=== PATIENT | male | born 1990 | race Caucasian/White ===

== ENCOUNTER 2016-08-11 19:32 | Emergency (ER) | payer SELFPAY ==
[~2016-08-11] VITALS: Ht 185.4 cm; Wt 81.8 kg
[~2016-08-11 19:32] MED LIST: AMOXICILLIN 50500 MG PO; FLAGYL500 MG PO; FLEXERIL 1010 MG/TAB PO; LITHOBID 3300 MG/TAB PO; NAPROSYN500 MG PO; NO HOME MEDICATIONS; NORCO 325 MG-51 TAB PO; ROBAXIN 50500 MG/TAB PO; SEROQUEL XR50 MG PO
[2016-08-11 19:33] VITALS: TEMP 98.9
[2016-08-11] MEDS ORDERED: ULTRAM 50MG TAB50 MG PO (19:52)
[2016-08-11 20:48] VITALS: BP 120/72; PULSE 98
== END 2016-08-11 20:49 | disposition home or self-care (01) ==
LOC: COL.ER 19:32
DX: S46.912A Strain of unspecified muscle, fascia and tendon at shoulder and upper arm level, left arm, initial encounter (principal); F17.210 Nicotine dependence, cigarettes, uncomplicated; X50.3XXA Overexertion from repetitive movements, initial encounter; Y92.008 Other place in unspecified non-institutional (private) residence as the place of occurrence of the external cause; G89.29 Other chronic pain
CPT/HCPCS: J1885

== ENCOUNTER 2016-12-10 19:46 | Emergency (ER) | payer SELFPAY ==
[~2016-12-10] VITALS: Ht 193 cm; Wt 75.0 kg
[~2016-12-10 19:46] MED LIST changes: +ULTRAM 50MG TAB50 MG PO
[2016-12-10 19:49] VITALS: BP 130/80; PULSE 88; TEMP 98.5
== END 2016-12-10 20:40 | disposition home or self-care (01) ==
LOC: COL.ER 19:46
DX: S61.212A Laceration without foreign body of right middle finger without damage to nail, initial encounter (principal); F31.9 Bipolar disorder, unspecified; F20.9 Schizophrenia, unspecified; F17.210 Nicotine dependence, cigarettes, uncomplicated; W26.8XXA Contact with other sharp object(s), not elsewhere classified, initial encounter; Y92.009 Unspecified place in unspecified non-institutional (private) residence as the place of occurrence of the external cause

== ENCOUNTER 2017-03-02 14:09 | Emergency (ER) | payer SELFPAY ==
[~2017-03-02] VITALS: Ht 185.4 cm; Wt 76.4 kg
[2017-03-02 14:14] VITALS: BP 115/64; TEMP 98.1
[2017-03-02] MEDS ORDERED: FLEXERIL 1010 MG/TAB PO (15:11)
[2017-03-02 15:48] VITALS: PULSE 68
== END 2017-03-02 15:49 | disposition home or self-care (01) ==
LOC: COL.ER 14:09
DX: S33.9XXA Sprain of unspecified parts of lumbar spine and pelvis, initial encounter (principal); F17.210 Nicotine dependence, cigarettes, uncomplicated; X50.0XXA Overexertion from strenuous movement or load, initial encounter
CPT/HCPCS: J1885; J2360

== ENCOUNTER 2017-03-28 17:30 | Emergency (ER) | payer SELFPAY ==
[~2017-03-28] VITALS: Ht 185.4 cm; Wt 76.4 kg
[2017-03-28 17:35] VITALS: BP 144/82; TEMP 98.6
[2017-03-28] MEDS ORDERED: FLEXERIL 1010 MG/TAB PO (19:06)
[2017-03-28 19:14] VITALS: PULSE 85
== END 2017-03-28 19:14 | disposition home or self-care (01) ==
LOC: COL.ER 17:30
DX: S33.9XXA Sprain of unspecified parts of lumbar spine and pelvis, initial encounter (principal); Z87.891 Personal history of nicotine dependence; X50.0XXA Overexertion from strenuous movement or load, initial encounter
CPT/HCPCS: J1885; J2360

== ENCOUNTER 2018-06-07 12:55 | Emergency (ER) | payer SELFPAY ==
[~2018-06-07] VITALS: Ht 185.4 cm; Wt 79.5 kg
[2018-06-07 13:06] VITALS: BP 122/58; TEMP 98
[2018-06-07 16:57] VITALS: PULSE 68
== END 2018-06-07 17:04 | disposition home or self-care (01) ==
LOC: COL.ER 12:55
DX: S43.402A Unspecified sprain of left shoulder joint, initial encounter (principal); F17.210 Nicotine dependence, cigarettes, uncomplicated; X50.0XXA Overexertion from strenuous movement or load, initial encounter
CPT/HCPCS: J1885

== ENCOUNTER 2020-07-06 10:27 | Emergency (ER) | payer SELFPAY ==
[~2020-07-06] VITALS: Ht 185.4 cm; Wt 85.0 kg
[2020-07-06 10:31] VITALS: TEMP 98.3
[2020-07-06] MEDS ORDERED: FLEXERIL 1010 MG/TAB PO (11:30)
[2020-07-06] MEDS ORDERED: NAPROSYN500 MG PO (11:30)
[2020-07-06 11:43] VITALS: BP 131/70; PULSE 69
== END 2020-07-06 11:43 | disposition home or self-care (01) ==
LOC: COL.ER 10:27
DX: G89.29 Other chronic pain (principal); M54.5 Low back pain; Z87.891 Personal history of nicotine dependence
CPT/HCPCS: J1885

== ENCOUNTER 2021-05-22 12:24 | Emergency (ER) | payer SELFPAY ==
[~2021-05-22] VITALS: Ht 185.4 cm; Wt 79.5 kg
[2021-05-22 12:30] VITALS: TEMP 98.5
[2021-05-22 12:56] LABS: BASO # 0.1 K/mm3 (0.0-0.2); BASO % 0.7 % (0.0-2.0); EOS % 0.3 % (0.0-4.0); GRAN # 7.9 K/mm3 (1.4-6.5); GRAN % 80.9 % (42.2-75.2); HEMATOCRIT 46.6 % (42.0-52.0); HEMOGLOBIN 16.2 g/dl (13.5-18.0); LYMPH # 1.3 K/mm3 (1.2-3.4); LYMPH % 13.1 % (20.0-51.0); MEAN CELL VOLUME 91 fl (80.0-100.0); MEAN CORPUSCULAR HEMOGLOBIN 32 pg (27-31); MEAN CORPUSCULAR HGB CONC 35 g/dl (33.0-37.0); MEAN PLATELET VOLUME 9.6 fl (7.4-10.4); MONO # 0.5 K/mm3 (0.1-0.6); MONO % 4.8 % (1.7-9.3); PLATELET COUNT 339 K/mm3 (130-400); RED BLOOD COUNT 5.14 M/mm3 (4.20-5.60); REDCELL DISTRIBUTION WIDTH-CV 11.8 % (11.5-14.5)
[2021-05-22 13:01] LABS: ALANINE AMINOTRANSFERASE 18 U/L (0-55); ALBUMIN 4.4 gm/dL (3.5-5.0); ALKALINE PHOSPHATASE 61 U/L (40-150); ANION GAP 10 mmol/L (7-16); AST,SGOT 22 U/L (5-34); BILIRUBIN,TOTAL 0.5 mg/dL (0.2-1.2); BLOOD UREA NITROGEN 12 mg/dL (9-21); CALCIUM 9.2 mg/dL (8.4-10.2); CARBON DIOXIDE 24 mmol/L (22-29); CHLORIDE 107 mmol/L (98-107); CREATININE, serum 1.16 mg/dL (0.72-1.25); GLUCOSE 102 mg/dL (70-99); LIPASE 47 U/L (8-78); POTASSIUM 4.2 mmol/L (3.5-4.5); SODIUM 141 mmol/L (136-145); TOTAL PROTEIN 7.9 gm/dL (6.2-8.1)
[2021-05-22 13:03] LABS: ALCOHOL(ethanol),MEDICAL < 10 mg/dL (0-10)
[2021-05-22 14:23] LABS: COLLECTION METHOD CLEAN CATCH
[2021-05-22 14:28] LABS: MUCOUS Present (NOT PRESENT); PH 7 (5-8); SQUAMOUS EPITHELIAL None Seen /hpf (0-10); URINE APPEARANCE Clear (CLEAR/HAZY); URINE BACTERIA None Seen /hpf (NONE SEEN); URINE BILIRUBIN Negative (NEGATIVE); URINE BLOOD Negative (NEGATIVE); URINE COLOR Yellow (YELLOW); URINE GLUCOSE Negative (NEGATIVE); URINE KETONE Negative (NEGATIVE); URINE LEUKOCYTE ESTERASE Negative (NEGATIVE); URINE NITRATE Negative (NEGATIVE); URINE PROTEIN(semi-quant) Negative (NEGATIVE); URINE RBC 0-2 /hpf (0-2); URINE UROBILINOGEN Negative (NEGATIVE)
[2021-05-22 14:44] LABS: TRICYCLIC ANTIDEPRESS URINE NEGATIVE
[2021-05-22] MEDS ORDERED: LIBRIUM 25M25 MG/CAP PO (14:48)
[2021-05-22] MEDS ORDERED: PRILOSEC 20MG20 MG PO (14:50)
[2021-05-22 14:59] VITALS: BP 118/73; PULSE 74
--- NOTE | 2021-05-22 15:11 | NUR ---
track worker consulted for resources on etho treatment. Patient lives in [place] and is PCP is Dr. Justina Devi at [facility] in [place]. Patient's mother Pat is confirmed at an emergency contact. Patient verbalizes that he would like treatment for etho use. Patient states he was working at [employer] in [place] but "quit" two days ago due to seeking treatment. Patient is provided information for [facility] and educated that he has to call and complete an intake assessment. Patient encouraged to reach out to [facility] if he feels he is in a crisis situation. Verbalizes that when "something bad" happens he goes straight to the liquor store. Patient states " i will call them as soon as i leave here". Patient's RN notified of the above.
== END 2021-05-22 15:10 | disposition home or self-care (01) ==
LOC: COL.ER 12:24
PROVIDERS: Physician Assistant
DX: K29.20 Alcoholic gastritis without bleeding (principal); Z87.891 Personal history of nicotine dependence
CPT/HCPCS: C9113; J2405; J7030; Q9967

== ENCOUNTER 2021-11-30 20:04 | Emergency (ER) | payer SELFPAY ==
[~2021-11-30] VITALS: Ht 185.4 cm; Wt 83.6 kg
[~2021-11-30 20:04] MED LIST changes: +LIBRIUM 25M25 MG/CAP PO; +PRILOSEC 20MG20 MG PO
[2021-11-30 20:06] VITALS: TEMP 98.8
[2021-11-30 20:28] LABS: BASO % 0.3 % (0.0-2.0); EOS # 0.1 K/mm3 (0.0-0.7); EOS % 0.4 % (0.0-4.0); GRAN # 10.1 K/mm3 (1.4-6.5); GRAN % 84.5 % (42.2-75.2); HEMATOCRIT 41.7 % (42.0-52.0); HEMOGLOBIN 14.4 g/dl (13.5-18.0); LYMPH # 0.8 K/mm3 (1.2-3.4); MEAN CELL VOLUME 94 fl (80.0-100.0); MEAN CORPUSCULAR HEMOGLOBIN 32 pg (27-31); MEAN CORPUSCULAR HGB CONC 35 g/dl (33.0-37.0); MEAN PLATELET VOLUME 9.6 fl (7.4-10.4); MONO # 0.9 K/mm3 (0.1-0.6); MONO % 7.3 % (1.7-9.3); PLATELET COUNT 271 K/mm3 (130-400); RED BLOOD COUNT 4.44 M/mm3 (4.20-5.60); REDCELL DISTRIBUTION WIDTH-CV 11.7 % (11.5-14.5)
[2021-11-30 20:41] LABS: ALBUMIN 4.1 gm/dL (3.5-5.0); BILIRUBIN,TOTAL 0.5 mg/dL (0.2-1.2); C-REACTIVE PROTEIN 6.11 mg/dL (0.00-0.50); CALCIUM 9.3 mg/dL (8.4-10.2); CREATININE, serum 0.89 mg/dL (0.72-1.25); POTASSIUM 3.8 mmol/L (3.5-4.5); TOTAL PROTEIN 7.7 gm/dL (6.2-8.1)
[2021-11-30 21:46] LABS: COLLECTION METHOD CLEAN CATCH
[2021-11-30 21:54] LABS: URINE APPEARANCE Clear (CLEAR/HAZY); URINE BLOOD Negative (NEGATIVE); URINE COLOR Yellow (YELLOW); URINE GLUCOSE Negative (NEGATIVE); URINE KETONE 1+ (NEGATIVE); URINE NITRATE Negative (NEGATIVE); URINE PROTEIN(semi-quant) Negative (NEGATIVE); URINE UROBILINOGEN 0.2 E.U/dL (0.2-1.0)
[2021-11-30 21:56] LABS: MUCOUS Present (NOT PRESENT); SQUAMOUS EPITHELIAL 0-2 /hpf (0-10); URINE BACTERIA Rare /hpf (NONE SEEN); URINE RBC None Seen /hpf (0-2)
[2021-11-30 23:39] VITALS: BP 122/70; PULSE 77
== END 2021-11-30 23:29 | disposition home or self-care (01) ==
LOC: COL.ER 20:04
PROVIDERS: Physician Assistant
DX: K52.89 Other specified noninfective gastroenteritis and colitis (principal); R79.82 Elevated C-reactive protein (CRP); F17.210 Nicotine dependence, cigarettes, uncomplicated; Z28.310 Unvaccinated for COVID-19
CPT/HCPCS: J2270; J2405; Q9967